=== PATIENT | female | born 1945 | race Caucasian/White ===

== ENCOUNTER 2016-09-06 16:08 | Inpatient (IN) | payer MEDICARE, OTHER ==
[2016-09-06 16:13] VITALS: BMI 24.0
[2016-09-06] MEDS ORDERED: Sodium Chloride 0.9% 500 ML IV STA (16:23)
[2016-09-06 16:42] LABS: BASO % 0.5 % (0.0-2.0); EOS # 0.1 K/uL (0.0-0.7); EOS % 1.1 % (0.0-4.0); HEMATOCRIT 31.2 % (34.0-47.0); LYMPH # 3.1 K/uL (1.0-4.3); LYMPH % 42.7 % (20.0-40.0); MEAN CELL VOLUME 76.9 fL (81.0-99.0); MEAN CORPUSCULAR HGB CONC 32.6 g/dL (33.0-37.0); MEAN PLATELET VOLUME 8.9 fL (7.2-11.7); MONO # 0.5 K/uL (0.0-0.8); MONO % 6.5 % (0.0-10.0); RED CELL DISTRIBUTION WIDTH 17.4 % (11.5-14.5); WHITE BLOOD COUNT 7.2 K/uL (4.8-10.8)
[2016-09-06 16:51] LABS: POTASSIUM 4.4 mmol/L (3.6-5.2)
[2016-09-06 16:54] LABS: ALB/GLOB RATIO 1.3 (1.0-2.1); BILIRUBIN,TOTAL 0.2 mg/dL (0.2-1.3); CALCIUM 8.7 mg/dl (8.6-10.4); TOTAL PROTEIN 7.5 g/dL (6.3-8.3)
--- NOTE | 2016-09-06 17:02 | C.PDOC ---
History Of Present Illness 71 y/o female, whose past medical history includes diabetes, is sent to the emergency department by PMD for renal failure. Patient reports she was seeing her doctor for routine blood work after complaining that she had been feeling weak, unwell, and had a recent weight loss of 10 lbs. She also notes some flank pain. Patient denies any fever, chest pain, shortness of breath, abdominal pain , vomiting, or other complaints. Time Seen by Provider: 09/06/16 16:22 Chief Complaint (Nursing): Female Genitourinary History Per: Patient History/Exam Limitations: no limitations Onset/Duration Of Symptoms: Days, Persistent Current Symptoms Are (Timing): Still Present Reports Recently: Treated By A Physician Recent travel outside of the [place]: No Past Medical History Reviewed: Historical Data, Nursing Documentation, Vital Signs Vital Signs: Last Vital Signs Temp 97.5 F L 09/06/16 18:18 Pulse 82 09/06/16 18:18 Resp 20 09/06/16 18:18 BP 132/76 09/06/16 18:18 Pulse Ox 100 09/06/16 18:18 - Medical History PMH: Anxiety, Depression, Diabetes, HTN Surgical History: Cholecystectomy - [facility] COLONOSCOPY (09/28/13) Family History: States: No Known Family Hx - Social History Hx Tobacco Use: No Hx Alcohol Use: No Hx Substance Use: No - Immunization History Hx Tetanus Toxoid Vaccination: No Hx Influenza Vaccination: No (''Unknown'') Hx Pneumococcal Vaccination: No Review Of Systems Except As Marked, All Systems Reviewed And Found Negative. Constitutional: Positive for: Weakness, Weight loss, Other ("not feeling well") . Negative for: Fever Cardiovascular: Negative for: Chest Pain Respiratory: Negative for: Shortness of Breath Gastrointestinal: Negative for: Vomiting Musculoskeletal: Positive for: Other (flank pain) Physical Exam - Physical Exam Appears: Non-toxic, No Acute Distress Skin: Warm, Dry, Pale Head: Atraumatic, Normacephalic Eye(s): bilateral: Normal Inspection, PERRL Oral Mucosa: Moist Neck: Normal, Normal ROM Chest: Symmetrical Cardiovascular: Rhythm Regular Respiratory: Normal Breath Sounds, No Rales, No Rhonchi, No Wheezing Gastrointestinal/Abdominal: Normal Exam, Soft, No Tenderness Back: Normal Inspection, No CVA Tenderness Extremity: Normal ROM, No Tenderness, No Swelling Neurological/Psych: Oriented x3, Normal Speech, Normal Cognition ED Course And Treatment - Laboratory Results Result Diagrams: 09/06/16 16:38 09/06/16 16:38 O2 Sat by Pulse Oximetry: 100 (ra) Pulse Ox Interpretation: Normal - Other Rad Chest X-Ray X-Ray: Viewed By Me, Read By Radiologist Interpretation: Accession No. : [id number]. Patient Name / ID : TRESSA TERRY / [id number]. Exam Date : 09/06/2016 16:40:58 ( Approved ). Study Comment : Sex / Age : F / 71Y. Creator : ERICA FRANK MD. Dictator : ERICA FRANK MD. [employer] : Nitro Man : ERICA FRANK MD. Approver2 : Report Date : 09/06/2016 17:29:39. My Comment : . PROCEDURE: CHEST RADIOGRAPH, 1 VIEW. HISTORY: abnormal renal function. COMPARISON: 05/04/2016. FINDINGS : LUNGS: The lungs are well inflated and clear. PLEURA: No pneumothorax or pleural fluid seen. CARDIOVASCULAR: Normal. OSSEOUS STRUCTURES: No significant abnormalities. VISUALIZED UPPER ABDOMEN: Normal. OTHER FINDINGS: None. IMPRESSION: No active pulmonary disease. - CT Scan/US CT Abd/Pelvis Other Rad Studies (CT/US): Read By Radiologist, Radiology Report Reviewed CT/US Interpretation: Accession No. : [id number]. Patient Name / ID : TRESSA TERRY / [id number]. Exam Date : 09/06/2016 17:08:18 ( Approved ). Study Comment : Sex / Age : F / 71Y. Creator : Ross Crain MD. Dictator : Ross Crain MD. [employer] : Nitro Man : Ross Crain MD. Approver2 : Report Date : 09/06/2016 17:37:24. My Comment : . PROCEDURE: CT Abdomen and Pelvis without intravenous contrast. HISTORY: flank pain. COMPARISON: None. TECHNIQUE: Without contrast.. Contrast Dose: Radiation dose: Total exam DLP = 420 mGy-cm. FINDINGS: LOWER THORAX: Unremarkable. LIVER: Unremarkable. No gross lesion or ductal dilatation. GALLBLADDER AND BILE DUCTS: Unremarkable. PANCREAS: Unremarkable. No gross lesion or ductal dilatation. SPLEEN: Unremarkable. ADRENALS: Unremarkable. No mass. KIDNEYS AND URETERS: Unremarkable. No hydronephrosis. No solid mass. There are 2 small 3 mm nonobstructing stones in the left kidney. VASCULATURE: Unremarkable. No aortic aneurysm. BOWEL: Unremarkable. No obstruction. No gross mural thickening. There is moderate constipation. APPENDIX: Unremarkable. Normal appendix. PERITONEUM: Unremarkable. No free fluid. No free air. LYMPH NODES: Unremarkable. No enlarged lymph nodes. BLADDER: Unremarkable. REPRODUCTIVE: Unremarkable. BONES: No acute fracture. OTHER FINDINGS: None. IMPRESSION: No acute intra-abdominal findings Progress Note: EKG, CXR, CT Abd/Pelvis, Bladder Scan, Blood Work, Urinalysis, and Urine Culture were ordered. Patient treated with IV Fluids. Bedside Bladder scan shows 200 ml of urine. Patient accepted for admission under the care of Dr. Sophie Ivory. Disposition - Disposition Disposition: HOSPITALIZED Disposition Time: 17:18 Condition: FAIR - Clinical Impression Clinical Impression: Acute renal failure - PA / DIE CUTTER OPERATOR / Resident Statement MD/DO has reviewed & agrees with the documentation as recorded. - Scribe Statement The provider has reviewed the documentation as recorded by the Scribe (Genny Negron) All medical record entries made by the Scribe were at my direction and personally dictated by me. I have reviewed the chart and agree that the record accurately reflects my personal performance of the history, physical exam, medical decision making, and the department course for this patient. I have also personally directed, reviewed, and agree with the discharge instructions and disposition. Decision To Admit - Pt Status Changed To: Hospital Disposition Of: Inpatient - Admit Certification Admit to Inpatient:: After my assessment, the patient will require hospitalization for at least two midnights. This is because of the severity of symptoms shown, intensity of services needed, and/or the medical risk in this patient being treated as an outpatient. - InPatient: Physician Admission Certification: I certify that this patient requires 2 or more midnights of care for the following reason:: New oncet of ARF will need a full work up that will take more than 2 days of hospitalization. - . Bed Request Type: Regular Admitting Physician: Sophie Ivory Patient Diagnosis: Acute renal failure
[2016-09-06 17:17] LABS: RBC URINE 1 /hpf (0-3); URINE BACTERIA FEW (<OCC); URINE BILIRUBIN NEGATIVE (NEGATIVE); URINE BLOOD NEGATIVE (NEGATIVE); URINE COLOR Yellow (YELLOW); URINE GLUCOSE (UA) 2+ mg/dL (Normal); URINE KETONE NEGATIVE (NEGATIVE); URINE PROTEIN NEGATIVE (NEGATIVE); URINE UROBILINOGEN NORMAL mg/dL (0.2-1.0); WBC URINE 9 /hpf (0-5)
[2016-09-06] MEDS ORDERED: Sodium Chloride 0.9% 500 ML IV ONE (17:23)
[2016-09-06 17:24] LABS: URINE LEUKOCYTE ESTERASE 1+ Leu/uL (Negative)
--- NOTE | 2016-09-06 17:31 | RAD ---
PROCEDURE: CHEST RADIOGRAPH, 1 VIEW HISTORY: abnormal renal function COMPARISON: 05/04/2016 FINDINGS: LUNGS: The lungs are well inflated and clear. PLEURA: No pneumothorax or pleural fluid seen. CARDIOVASCULAR: Normal. OSSEOUS STRUCTURES: No significant abnormalities. VISUALIZED UPPER ABDOMEN: Normal. OTHER FINDINGS: None. IMPRESSION: No active pulmonary disease.
--- NOTE | 2016-09-06 17:39 | CT ---
PROCEDURE: CT Abdomen and Pelvis without intravenous contrast HISTORY: flank pain COMPARISON: None. TECHNIQUE: Without contrast.. Contrast Dose: Radiation dose: Total exam DLP = 420 mGy-cm. FINDINGS: LOWER THORAX: Unremarkable. LIVER: Unremarkable. No gross lesion or ductal dilatation. GALLBLADDER AND BILE DUCTS: Unremarkable. PANCREAS: Unremarkable. No gross lesion or ductal dilatation. SPLEEN: Unremarkable. ADRENALS: Unremarkable. No mass. KIDNEYS AND URETERS: Unremarkable. No hydronephrosis. No solid mass. There are 2 small 3 mm nonobstructing stones in the left kidney VASCULATURE: Unremarkable. No aortic aneurysm. BOWEL: Unremarkable. No obstruction. No gross mural thickening. There is moderate constipation APPENDIX: Unremarkable. Normal appendix. PERITONEUM: Unremarkable. No free fluid. No free air. LYMPH NODES: Unremarkable. No enlarged lymph nodes. BLADDER: Unremarkable. REPRODUCTIVE: Unremarkable. BONES: No acute fracture. OTHER FINDINGS: None. IMPRESSION: No acute intra-abdominal findings
[2016-09-06 18:18] VITALS: RESP 20
[2016-09-06] MEDS: Sodium Chloride 0.9% 1,000 ML IV SCH (20:24)
--- NOTE | 2016-09-06 23:19 | CP.PCM.CON ---
History of Present Illness - History of Present Illness History of Present Illness: Patient with pmh of htn, DM, depression, sent by brim stitcher due to lab findings indicative of renal failure; Patient reports that over past 2 weeks she has been feeling very ill with nausea , poor appetite, lethargy and a sweet taste in her mouth; she reports a few episodes of vomiting; however, she says that since yesterday her symptoms have improved; she denies any shortness of breath, any muscle cramps or change in urinary habits; she reports compliance with all her meds which she has continued taking up until this week; she denies any change in her medications lately; denies taking any regular pain meds (occasionally takes an advil occasionally for headaches). Patient also reporting having flu-like symptoms last month that lasted for 3 weeks and included fevers for a few days; at that time she went to her PMD and received some injection. Past Patient History - Infectious Disease Hx of Infectious Diseases: None - Past Medical History & Family History Past Medical History?: Yes - Past Social History Smoking Status: Former Smoker - CARDIAC Hx Cardiac Disorders: Yes Hx Hypertension: Yes - PULMONARY Hx Respiratory Disorders: No - NEUROLOGICAL Hx Neurological Disorder: No - HEENT Hx HEENT Problems: No - RENAL Hx Chronic Kidney Disease: No Other/Comment: ACUTE RENAL FAILURE - ENDOCRINE/METABOLIC Hx Endocrine Disorders: Yes Hx Diabetes Mellitus Type 1: Yes - HEMATOLOGICAL/ONCOLOGICAL Hx Blood Disorders: No - INTEGUMENTARY Hx Dermatological Problems: No - MUSCULOSKELETAL/RHEUMATOLOGICAL Hx Musculoskeletal Disorders: No Hx Falls: No - GASTROINTESTINAL Hx Gastrointestinal Disorders: No - GENITOURINARY/GYNECOLOGICAL Hx Genitourinary Disorders: No - PSYCHIATRIC Hx Psychophysiologic Disorder: No Hx Substance Use: No - SURGICAL HISTORY Hx Surgeries: Yes Hx Cholecystectomy: Yes - ANESTHESIA Hx Anesthesia: Yes Hx Anesthesia Reactions: No Hx Malignant Hyperthermia: No Has any member of the family had a problem w/ anesthesia?: No Meds Allergies/Adverse Reactions: Allergies Allergy/AdvReac Type Severity Reaction Status Date / Time No Known Allergies Allergy Verified 09/06/16 16:12 - Medications Medications: Current Medications Famotidine (Pepcid) 40 mg PO DAILY [facility] Glimepiride (Amaryl) 2 mg PO DAILY [facility] Sodium Chloride (Sodium Chloride 0.9%) 1,000 mls @ 100 mls/hr IV .Q10H [facility] Last Admin: 09/06/16 20:24 Dose: 100 mls/hr Ceftriaxone Sodium 1 gm/ (Sodium Chloride) 100 mls @ 100 mls/hr IVPB DAILY [facility] Influenza Virus Vaccine (Afluria) 45 mcg IM .ONCE ONE Stop: 09/07/16 10:01 Insulin Human Isoph/Insulin Regular (Novolin 70/30 (70/30 Units/Ml) 10 Ml) 20 units SC BID [facility] Metoprolol Succinate (Toprol Xl) 100 mg PO DAILY [facility] Pneumococcal Polyvalent Vaccine (Pneumovax 23 Vaccine) 0.5 ml IM .ONCE ONE Stop: 09/08/16 10:01 Sitagliptin Phosphate (Januvia) 25 mg PO DAILY [facility] Results - Vital Signs Recent Vital Signs: Last Vital Signs Temp 97.2 F L 09/06/16 18:57 Pulse 85 09/06/16 18:57 Resp 20 09/06/16 18:57 BP 157/64 H 09/06/16 18:57 Pulse Ox 100 09/06/16 18:57 - Labs Result Diagrams: 09/06/16 16:38 09/06/16 16:38 Labs: Laboratory Results - last 24 hr 09/06/16 21:23 POC Glucose (mg/dL) 196 H Assessment & Plan (1) Acute renal failure Assessment and Plan: Appears to be resolving from outpatient labs done on 09/03 showing serum creat 4.7, now down to 3.8; non-oliguric renal failure; no hematuria or albuminuria by dipstick to suggest a glomerular process; Status: Acute (2) HTN (hypertension) Status: Acute (3) Diabetes Status: Acute (4) Anemia Status: Acute (5) Volume depletion Status: Acute
[2016-09-06 23:55] LABS: CREATININE, RANDOM URINE 116.9 mg/dL
[2016-09-07] MEDS: Sodium Chloride 0.9% 1,000 ML IV SCH ×2 (04:45→08:25)
[2016-09-07 07:15] LABS: HEMATOCRIT 34.5 % (34.0-47.0); MEAN CELL VOLUME 77.3 fL (81.0-99.0); MEAN CORPUSCULAR HEMOGLOBIN 24.8 pg (27.0-31.0); MEAN PLATELET VOLUME 8.9 fL (7.2-11.7); RED CELL DISTRIBUTION WIDTH 17.5 % (11.5-14.5); WHITE BLOOD COUNT 7.2 K/uL (4.8-10.8)
[2016-09-07 07:33] LABS: RBC URINE < 1 /hpf (0-3); URINE BACTERIA FEW (<OCC); URINE BILIRUBIN NEGATIVE (NEGATIVE); URINE BLOOD NEGATIVE (NEGATIVE); URINE COLOR Straw (YELLOW); URINE GLUCOSE (UA) 1+ mg/dL (Normal); URINE KETONE NEGATIVE (NEGATIVE); URINE LEUKOCYTE ESTERASE 2+ Leu/uL (Negative); URINE PROTEIN NEGATIVE (NEGATIVE); URINE UROBILINOGEN NORMAL mg/dL (0.2-1.0); WBC URINE 13 /hpf (0-5)
[2016-09-07 07:34] LABS: POTASSIUM 3.7 mmol/L (3.6-5.2)
[2016-09-07 07:35] LABS: IRON 123 ug/dL (37-170)
[2016-09-07 07:36] LABS: ALB/GLOB RATIO 1.3 (1.0-2.1); BILIRUBIN,TOTAL 0.6 mg/dL (0.2-1.3); CALCIUM 8.5 mg/dl (8.6-10.4); TOTAL PROTEIN 7.9 g/dL (6.3-8.3)
[2016-09-07 07:58] LABS: THYROID STIMULATING HORMONE 2.59 mIU/L (0.46-4.68)
[2016-09-07 08:33] LABS: FOLATE 8.4 ng/mL
[2016-09-07] MEDS ORDERED: Influenza Virus Vaccine 45 mcg/0.5 ml Syr IM ONE (10:00)
[2016-09-07] MEDS: (Novolin 70/30) NPH/Regular 70/30 Units/ml 10 ml vial SC SCH ×2 (10:50→17:14)
[2016-09-07] MEDS: Metoprolol Succinate 100 mg XL Tab PO SCH (10:51)
[2016-09-07] MEDS: (Novolin R) Insulin Human Regular 100 units/ml vial SC SCH ×3 (12:22→22:12)
--- NOTE | 2016-09-07 17:44 | CP.PCM.PN ---
Subjective - Date & Time of Evaluation Date of Evaluation: 09/07/16 Time of Evaluation: 15:30 - Subjective Subjective: Patient feeling better, tolerating diet without nausea; urine output markedly increased since being admitted; Objective - Vital Signs/Intake and Output Vital Signs (last 24 hours): Temp Pulse Resp BP Pulse Ox 97.8 F 69 20 146/79 99 09/07/16 15:05 09/07/16 15:05 09/07/16 15:05 09/07/16 15:05 09/07/16 15:05 Intake and Output: 09/07/16 09/07/16 06:59 18:59 Intake Total 300 2290 Balance 300 2290 - Medications Medications: Current Medications Famotidine (Pepcid) 40 mg PO DAILY [facility] Last Admin: 09/07/16 10:57 Dose: 40 mg Glimepiride (Amaryl) 2 mg PO DAILY [facility] Last Admin: 09/07/16 10:51 Dose: 2 mg Heparin Sodium (Porcine) (Heparin) 5,000 units SC Q12 [facility] Last Admin: 09/07/16 10:51 Dose: 5,000 units Ceftriaxone Sodium 1 gm/ (Sodium Chloride) 100 mls @ 100 mls/hr IVPB DAILY [facility] Last Admin: 09/07/16 10:51 Dose: 100 mls/hr Sodium Chloride (Sodium Chloride 0.45%) 1,000 mls @ 120 mls/hr IV .Q8H20M [facility] Influenza Virus Vaccine (Afluria) 45 mcg IM .ONCE ONE Stop: 09/08/16 10:01 Insulin Human Isoph/Insulin Regular (Novolin 70/30 (70/30 Units/Ml) 10 Ml) 20 units SC BID [facility] Last Admin: 09/07/16 17:14 Dose: Not Given Insulin Human Regular (Novolin R) 0 unit SC ACHS [facility] PRN Reason: Protocol Last Admin: 09/07/16 17:14 Dose: Not Given Metoprolol Succinate (Toprol Xl) 100 mg PO DAILY [facility] Last Admin: 09/07/16 10:51 Dose: 100 mg Pneumococcal Polyvalent Vaccine (Pneumovax 23 Vaccine) 0.5 ml IM .ONCE ONE Stop: 09/08/16 10:01 Sitagliptin Phosphate (Januvia) 25 mg PO DAILY [facility] - Labs Labs: 09/07/16 07:01 09/07/16 07:01 - Constitutional Appears: Well, No Acute Distress - Head Exam Head Exam: NORMAL INSPECTION - Eye Exam Eye Exam: Normal appearance. absent: Scleral icterus - ENT Exam ENT Exam: Mucous Membranes Moist - Neck Exam Neck Exam: Normal Inspection - Respiratory Exam Respiratory Exam: Clear to Ausculation Bilateral, NORMAL BREATHING PATTERN - Cardiovascular Exam Cardiovascular Exam: REGULAR RHYTHM, +S1, +S2. absent: JVD - GI/Abdominal Exam GI & Abdominal Exam: Soft. absent: Distended, Tenderness - Extremities Exam Extremities Exam: Normal Capillary Refill Additional comments: No significant leg edema; - Neurological Exam Neurological Exam: Alert, Awake - Skin Skin Exam: Warm. absent: Cyanosis Assessment and Plan (1) Acute renal failure Assessment & Plan: Non-oliguric renal failure, resolving; appears to having post-ATN diuresis which is consistent with new onset of hypernatremia; etiology is either ATN due to recent possible sepsis syndrome (last month), or AIN; Urine sediment not entirely useful as disease process is resolving; nevertheless , showing some renal tubular epithelial cells indicative of tubular injury; also significant number of WBC's without bacteria, as well as 1-2 mixed cellular casts seen, which points more toward AIN; Difficult to get focused history from patient but she reports 2 oral hypoglycemic agents, januvia and glimeperide, being started within the past month (although bottle says glimeperide prescription from April 2016) and which she subsequently discontinued per doctor's recommendation (with last use being 4 days before admission); januvia has been associated AIN; -d/c januvia -IVF changed to 1/2NS at 120 cc/hr -continue to hold JUAN C inhibitor until renal function stabilizes Status: Acute (2) HTN (hypertension) Assessment & Plan: Controlled, continue metoprolol XL; hold JUAN C inhibitor and diuretic; Status: Acute (3) Diabetes Assessment & Plan: A1C 7.7, improved from 9.4 in 03/2016 per outside records; has microalbuminuria as well; should restart JUAN C inhibitor when renal function stable; Status: Acute (4) Anemia Assessment & Plan: Secondary to acute illness; iron replete; monitor; Status: Acute (5) Volume depletion Assessment & Plan: Indicated by high FENa 0.6% on labs last night; monitor UO and replenish accordingly; Status: Acute
[2016-09-07] MEDS: Sodium Chloride 0.45% 1,000 ML IV SCH (21:54)
[2016-09-08] MEDS: Sodium Chloride 0.45% 1,000 ML IV SCH ×4 (00:05→18:28)
[2016-09-08 05:18] LABS: CREATININE, RANDOM URINE 63 mg/dL (20-320)
--- NOTE | 2016-09-08 06:31 | CARD ---
APPROVED REPORT EKG Measurement Heart [id number] <Conclusion> Normal sinus rhythm Normal ECG
[2016-09-08 07:34] LABS: POTASSIUM 3.6 mmol/L (3.6-5.2)
[2016-09-08 07:38] LABS: CALCIUM 7.6 mg/dl (8.6-10.4)
[2016-09-08] MEDS: (Novolin R) Insulin Human Regular 100 units/ml vial SC SCH ×4 (08:30→21:40)
[2016-09-08] MEDS ORDERED: Influenza Virus Vaccine 45 mcg/0.5 ml Syr IM ONE (10:00)
[2016-09-08] MEDS ORDERED: Pneumococcal 23-Valent Vaccine IM ONE (10:00)
[2016-09-08] MEDS: Metoprolol Succinate 100 mg XL Tab PO SCH (10:56)
[2016-09-08] MEDS: (Novolin 70/30) NPH/Regular 70/30 Units/ml 10 ml vial SC SCH ×2 (10:57→18:00)
--- NOTE | 2016-09-08 19:56 | PN ---
DATE: 09/08/2016 The patient is a 71-year-old female. The patient seen and examined on the bedside, looks comfortable, feeling better. No nausea, vomiting, diarrhea. No hematuria, no hematochezia. No swelling of the legs. No chest pain, no palpitation, no headache, no dizziness. PHYSICAL EXAMINATION: VITAL SIGNS: Temperature 97.3, pulse 65, blood pressure 120/71, respiratory rate 20. HEENT: Head normocephalic, atraumatic. Eyes: PERRLA. Extraocular muscles intact. Conjunctivae pink. Eyelids unremarkable. Nose patent. Mucous membranes moist. NECK: Supple. No carotid bruit, no JVD, no thyromegaly. CHEST: Bilaterally symmetrical. HEART: S1 and S2 positive. LUNGS: Clear to auscultation. ABDOMEN: Soft. Bowel sounds positive. No organomegaly. EXTREMITIES: No edema, no cyanosis. NEUROLOGIC: The patient is awake, alert, moving all 4 extremities. No focal deficits. MEDICATIONS: Amaryl, ceftriaxone, heparin, insulin, Pepcid, NS, Toprol. LABORATORIES: White blood cells 7.2, hemoglobin 11.0, hematocrit 34.5, platelets 245. Sodium 142, potassium 3.6, BUN 36, creatinine 2.0, glucose 99, calcium 7.6. ASSESSMENT AND PLAN: The patient is a 71-year-old lady with a history of anemia , got better, history of renal insufficiency, acute on chronic. She came with BUN 60, creatinine 2.8. Today, BUN 37, creatinine 2.0. Hyperglycemia. Discussion done with youth services specialist. Discussion done with business systems consultant. Kidney function is improving. Glucosuria. Dr. Tariq Briggs is the business systems consultant. Discussion done with him. Hypertension, controlled. Continue metoprolol , because of kidney problem. Diabetes. Hemoglobin A1c 7.7, improvement from 9.4 on 03/29/2016 as per outside records, has microalbuminuria as well. Should restart JUAN C inhibitors when her renal function is stable. Anemia, secondary to acute illness. Iron replacement, monitoring. Volume depletion. The patient is improving with IV fluid. Length of time discussion done with patient, patient's nurses. Doing better. We will follow up. Sophie Ivory MD cc: [id number] TT: 09/08/2016 19:55:27 Confirmation # [id number] Dictation # [id number] en MTDD
--- NOTE | 2016-09-08 23:17 | CP.PCM.PN ---
Subjective - Date & Time of Evaluation Date of Evaluation: 09/08/16 Time of Evaluation: 16:30 - Subjective Subjective: Patient feeling well, tolerating diet; no nausea/vomiting or shortness of breath ; reporting increased urination; Objective - Vital Signs/Intake and Output Vital Signs (last 24 hours): Temp Pulse Resp BP Pulse Ox 97.3 F L 65 20 146/71 99 09/08/16 15:00 09/08/16 15:00 09/08/16 15:00 09/08/16 15:00 09/08/16 15:00 - Medications Medications: Current Medications Acetaminophen (Tylenol 325mg Tab) 650 mg PO BID PRN PRN Reason: pain Last Admin: 09/08/16 22:59 Dose: 650 mg Famotidine (Pepcid) 40 mg PO DAILY [facility] Last Admin: 09/08/16 10:58 Dose: 40 mg Glimepiride (Amaryl) 2 mg PO DAILY [facility] Last Admin: 09/08/16 10:56 Dose: 2 mg Heparin Sodium (Porcine) (Heparin) 5,000 units SC Q12 [facility] Last Admin: 09/08/16 21:39 Dose: 5,000 units Ceftriaxone Sodium 1 gm/ (Sodium Chloride) 100 mls @ 100 mls/hr IVPB DAILY [facility] Last Admin: 09/08/16 10:58 Dose: 100 mls/hr Sodium Chloride (Sodium Chloride 0.45%) 1,000 mls @ 100 mls/hr IV .Q10H [facility] Insulin Human Isoph/Insulin Regular (Novolin 70/30 (70/30 Units/Ml) 10 Ml) 20 units SC BID [facility] Last Admin: 09/08/16 18:00 Dose: Not Given Insulin Human Regular (Novolin R) 0 unit SC ACHS [facility] PRN Reason: Protocol Last Admin: 09/08/16 21:40 Dose: Not Given Metoprolol Succinate (Toprol Xl) 100 mg PO DAILY [facility] Last Admin: 09/08/16 10:56 Dose: 100 mg - Labs Labs: 09/07/16 07:01 09/08/16 07:13 - Constitutional Appears: Well, No Acute Distress - Head Exam Head Exam: NORMAL INSPECTION - Eye Exam Eye Exam: Normal appearance. absent: Scleral icterus - ENT Exam ENT Exam: Mucous Membranes Moist - Neck Exam Neck Exam: Normal Inspection - Respiratory Exam Respiratory Exam: Clear to Ausculation Bilateral, NORMAL BREATHING PATTERN. absent: Rales, Rhonchi, Wheezes - Cardiovascular Exam Cardiovascular Exam: REGULAR RHYTHM, +S1, +S2. absent: JVD - GI/Abdominal Exam GI & Abdominal Exam: Soft. absent: Distended, Tenderness - Extremities Exam Additional comments: No leg edema; - Neurological Exam Neurological Exam: Alert, Awake - Psychiatric Exam Psychiatric exam: Normal Affect, Normal Mood - Skin Skin Exam: Warm. absent: Cyanosis Assessment and Plan (1) Acute renal failure Assessment & Plan: Already resolving by time of presentation; unclear etiology, either ATN in setting of acute illness or AIN, possibly from Sitagliptin, discontinued since 5 days; currently euvolemic on exam with stable electrolyte status; UA negative for albuminuria but with >2 g proteinuria by spot prot/creat; -continue 1/2NS at 120 cc/hr -will repeat proteinuria testing once serum creat stable (as outpatient) Status: Acute (2) HTN (hypertension) Assessment & Plan: controlled on metoprolol XL; holding enalapril for now, can restart as outpatient once creat stabilizes; Status: Acute (3) Diabetes Assessment & Plan: A1C mildly elevated for elderly patient at 7.7; can continue amaryl and resume metformin once creatinine < 1.5; Status: Acute (4) Anemia Status: Acute
[2016-09-09] MEDS: Sodium Chloride 0.45% 1,000 ML IV SCH ×3 (01:00→10:34)
[2016-09-09 07:13] LABS: HEMATOCRIT 28.6 % (34.0-47.0); MEAN CELL VOLUME 75.9 fL (81.0-99.0); MEAN CORPUSCULAR HGB CONC 32.9 g/dL (33.0-37.0); MEAN PLATELET VOLUME 8.9 fL (7.2-11.7); RED CELL DISTRIBUTION WIDTH 17.7 % (11.5-14.5); WHITE BLOOD COUNT 6.1 K/uL (4.8-10.8)
[2016-09-09 07:25] LABS: BILIRUBIN,TOTAL 0.2 mg/dL (0.2-1.3); CALCIUM 7.5 mg/dl (8.6-10.4); TOTAL PROTEIN 6.2 g/dL (6.3-8.3)
[2016-09-09] MEDS: (Novolin R) Insulin Human Regular 100 units/ml vial SC SCH ×4 (07:30→21:43)
[2016-09-09 07:38] LABS: ALB/GLOB RATIO 1.1 (1.0-2.1)
[2016-09-09] MEDS: (Novolin 70/30) NPH/Regular 70/30 Units/ml 10 ml vial SC SCH ×2 (10:19→17:51)
[2016-09-09] MEDS: Potassium Chloride 20 mEq ER Tab PO SCH ×2 (10:28→11:30)
[2016-09-09] MEDS: Metoprolol Succinate 100 mg XL Tab PO SCH (10:30)
[2016-09-09] MEDS ORDERED: Sodium Chloride 0.45% 1,000 ML IV SCH (13:10)
[2016-09-10 01:58] VITALS: O2SAT 98
[2016-09-10 07:58] LABS: HEMATOCRIT 30.5 % (34.0-47.0); MEAN CELL VOLUME 76.9 fL (81.0-99.0); MEAN CORPUSCULAR HEMOGLOBIN 24.9 pg (27.0-31.0); MEAN CORPUSCULAR HGB CONC 32.4 g/dL (33.0-37.0); RED CELL DISTRIBUTION WIDTH 17.5 % (11.5-14.5); WHITE BLOOD COUNT 6.2 K/uL (4.8-10.8)
--- NOTE | 2016-09-10 08:25 | PN ---
DATE: 09/09/2016 SUBJECTIVE: The patient seen and examined on the bedside, looks comfortable. Feeling better. Appetite is getting better. No nausea, vomiting. No fever, no chills. no hematochezia. No swelling of the leg. no chest pain, or palpitation . PHYSICAL EXAMINATION: VITAL SIGNS: pulse 62, blood pressure 122/69, respiratory rate 20. HEENT: Head normocephalic, atraumatic. Eyes PERRLA. Extraocular muscles intact. Conjunctivae pink. Eyelids unremarkable. Nose patent. NECK: Supple. No carotid bruit, JVD or thyromegaly. CHEST: Bilaterally symmetrical. HEART: S1, S2 positive. LUNGS: Clear to auscultation. ABDOMEN: Soft. Bowel sounds positive. No organomegaly. EXTREMITIES: No edema, no cyanosis. NEUROLOGIC: The patient is awake, alert, moving all 4 extremities. No focal deficit. MEDICATIONS: Amaryl, ceftriaxone, heparin, insulin, Pepcid, Toprol. LABORATORY DATA: White blood cells 6.1, hemoglobin 9.4, hematocrit 28.6, platelets 177. Sodium 140, potassium 3.0, BUN noted creatinine 1.6. Glucose 178. Calcium 7.5. ASSESSMENT AND PLAN: The patient is a 71-year-old female with anemia, hypokalemia, replaced; renal insufficiency, improving; hyperglycemia, hypocalcemia, will replace; hyperalbuminemia, history of urinary tract infection. Getting antibiotics. 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 Has acute renal failure on chronic, all resolving. Underlying etiology either cute tubular necrosis in the setting of acute illness or urinary tract infection, Discontinued since 5 days. Currently getting better. Hypertension, improving. The patient is on metoprolol. Holding enalapril now. Hemoglobin A1c 7.7, uncontrolled diabetes mellitus. Gastrointestinal and deep venous thrombosis prophylaxis. Repeat labs. Decrease intravenous fluids. Discussion done with patient and nursing staff. Sophie Ivory MD cc: [id number] TT: 09/09/2016 20:34:43 Confirmation # [id number] Dictation # [id number] [facility]
[2016-09-10 08:27] LABS: POTASSIUM 3.5 mmol/L (3.6-5.2)
[2016-09-10 08:30] LABS: CALCIUM 7.5 mg/dl (8.6-10.4)
[2016-09-10] MEDS: (Novolin R) Insulin Human Regular 100 units/ml vial SC SCH ×2 (08:47→12:37)
[2016-09-10] MEDS: (Novolin 70/30) NPH/Regular 70/30 Units/ml 10 ml vial SC SCH (09:25)
[2016-09-10] MEDS: Metoprolol Succinate 100 mg XL Tab PO SCH (09:26)
--- NOTE | 2016-09-10 09:45 | HP ---
CHIEF COMPLAINT: Feeling fatigued, weak, recent weight loss of 10 pounds. HISTORY OF PRESENT ILLNESS: The patient is a 71-year-old lady with history of diabetes mellitus sent to Emergency Room by her primary care physician for further evaluation for renal failure. The patient reports that she was seen by Dr. mcarthur after complaining that she had been feeling weak, tired, unwell and had recent loss of weight and pounds. She also noted some flank pain. The patient denies any fever or chills. No nausea, vomiting, or diarrhea. No hematuria or hematochezia. , no dizziness. This feeling for days and still present. The patient was seen in her room complaining about fatigue PAST MEDICAL HISTORY: Anxiety, depression, diabetes mellitus, hypertension, and cholecystectomy. SOCIAL HISTORY: No smoking, no drugs, no ethanol. FAMILY HISTORY: Father and mother noncontributory. REVIEW OF SYSTEMS: The patient seen and examined on the bedside. Speaks Bermudian. Interviewed with a environmental field professional. Complaining about fatigue . Otherwise, same feelings of feeling fatigue and tired, losing weight; but no fever, no chills, no nausea, vomiting or diarrhea, no hematuria or hematochezia. No swelling of the legs. No chest pain. PHYSICAL EXAMINATION: VITAL SIGNS: Temperature 97.5, pulse 80 , respiratory rate 20, blood pressure 132/76. HEENT: Head normocephalic, atraumatic. Eyes: PERRLA. Extraocular muscles intact. Conjunctivae are clear. Eyelids unremarkable. Nose patent. Mucous membranes moist. NECK: Supple. No carotid bruit, no JVD, no thyromegaly. CHEST: Bilaterally symmetrical. HEART: S1, S2 positive. LUNGS: Clear to auscultation. ABDOMEN: Soft. Bowel sounds positive. No organomegaly. EXTREMITIES: No edema, no cyanosis. NEUROLOGIC: The patient is awake, alert, moving all 4 extremities. No focal deficits. LABORATORY DATA: White blood cells 7.3, hemoglobin 10.2, hematocrit 31.2, and platelets 244. Sodium 135, potassium 4.4, BUN 72, creatinine 3.8, glucose 318. ASSESSMENT AND PLAN: The patient is a 71-year-old lady with renal insufficiency , acute on chronic; hyperglycemia, history of diabetes mellitus, hypertension, anxiety. Nephrology consult called with Dr. Tariq Briggs. CAT scan of abdomen and pelvis done, reviewed by me. Chest x-ray done, reviewed by me. According to nut dehydrator operator, acute renal failure looks like a resolving as compared to outpatient labs of 09/03/2016 that show creatinine was 4.7. Now it is trending down to 3.8. No oliguric renal failure. No hematuria or albuminuria by dipstick suggestive for glomerular process. Hypertension, and getting medicines for that. Volume depletion. The patient is given flu vaccination and started on heparin for deep venous thrombosis prophylaxis. Januvia is given , adjusted according to renal insufficiency. Getting insulin. Pepcid given for gastrointestinal prophylaxis. Rule out urinary tract infection, antibiotics started, Rocephin. Getting IV fluid. Got glimepiride also. Getting metoprolol for hypertension. Working on patient's renal failure. Appreciated Dr. Briggs's input. Will follow up. Sophie Ivory MD cc: [id number] TT: 09/07/2016 11:18:53 suellen OLIVERA
[2016-09-10] MEDS ORDERED: Potassium Chloride 20 mEq ER Tab PO ONE (10:00)
[2016-09-10 10:07] VITALS: BP 139/75; PULSE 70; TEMP 97.9
--- NOTE | 2016-09-10 17:10 | CP.PCM.PN ---
Subjective - Date & Time of Evaluation Date of Evaluation: 09/10/16 Time of Evaluation: 11:00 - Subjective Subjective: Awake, alert, NAD. Objective - Vital Signs/Intake and Output Vital Signs (last 24 hours): Temp Pulse Resp BP Pulse Ox 97.9 F 70 20 139/75 98 09/10/16 08:00 09/10/16 12:00 09/10/16 08:00 09/10/16 08:00 09/10/16 08:00 Intake and Output: 09/10/16 09/10/16 06:59 18:59 Intake Total 2250 910 Balance 2250 910 - Labs Labs: 09/10/16 07:50 09/10/16 07:50 Assessment and Plan - Assessment and Plan (Free Text) Assessment: Patient is seen and examined. Alert, awake, NAD. Denies sob or chest pains. Creatinine is down to 1.[address] Ivory, discharge plan for today. Advised to f/u in the office in 1 week.
--- NOTE | 2016-09-25 09:11 | DS ---
CHIEF COMPLAINT: Feeling fatigued and weak, recent weight loss of 10 pounds. HISTORY OF PRESENT ILLNESS: The patient is a 71-year-old lady with history of diabetes mellitus, sent to the Emergency Room by the primary care physician for further evaluation of renal failure. The patient reports that she was seen by her PMD after complaining that she has been feeling weak, tired, unwell and recently loss of weight. The patient denies fevers, chills. We admitted the patient. Called nephrology consult with Dr. Tariq Briggs. After giving hydration, patient started feeling better. Prescription of medications given. Follow up as outpatient with primary care physician and post acute care nurse practitioner. PAST MEDICAL HISTORY: Anxiety, depression, diabetes mellitus, hypertension, and cholecystectomy. SOCIAL HISTORY: No smoking, no drugs, no ethanol. FAMILY HISTORY: Father and mother noncontributory. REVIEW OF SYSTEMS: The patient was seen and examined on the bedside. Looks comfortable. No nausea, vomiting, or diarrhea. No hematuria or hematochezia. No chest pain, no palpitation. PHYSICAL EXAMINATION: VITAL SIGNS: Temperature 97.9, pulse 70, blood pressure 139/75, respiratory rate 20. HEENT: Head normocephalic, atraumatic. Eyes, PERRLA. Extraocular muscles intact. Conjunctivae pink. Eyelids unremarkable. Nose patent. Mucous membranes moist. NECK: Supple. No carotid bruit, JVD or thyromegaly. CHEST: Bilaterally symmetrical. HEART: S1, S2 positive. LUNGS: Clear to auscultation. ABDOMEN: Soft. Bowel sounds positive. No organomegaly. EXTREMITIES: No edema, no cyanosis. NEUROLOGIC: The patient looks comfortable. Oriented x 3. Cranial nerves II- XII are grossly intact. LABORATORY DATA: White blood cells 6.3, hemoglobin 9.9, hematocrit 30.5, platelets 175. Sodium 141, potassium 3.5, BUN noted , creatinine 1.5, glucose 206, calcium 7.5. ASSESSMENT AND PLAN: The patient is a 71-year-old female with anemia, hypokalemia, hyperglycemia, hypocalcemia, uncontrolled diabetes mellitus, glucosuria, drug screening negative, was admitted with acute renal failure, acute on chronic, already resolving by the time of presentation, unclear etiology, either acute tubular necrosis in the setting of acute illness or acute interstitial nephritis possibly from sitagliptin discontinued since 5 days. Currently euvolemic on exam with stable electrolyte status. Urinalysis is negative for albuminuria, but with more than 2 grams protein by spot protein/ creatinine. Will repeat proteinuria testing once serum creatinine is stable. Hypertension, controlled with metoprolol. Holding enalapril for now because of kidney function is not good. Diabetes; A1c is mildly elevated. Will resume metformin as kidney function will get better. Anemia is improving. Seen by Dr. Tariq Briggs. Discharged home on 09/10/2016. Prescription written by Amanda Milton, nurse practitioner. The patient was awake, alert. Denies shortness of breath or chest pain. Creatinine down to 1.5 today. Discussion done with Amanda. Advised to follow up in my office in 1 week and her post acute care nurse practitioner also. Sophie Ivory MD cc: [id number] TT: 09/25/2016 09:11:44 suellen OLIVERA
== END 2016-09-10 15:30 | disposition home or self-care (01) | DRG 683 ==
LOC: C.ER 16:08 → C.9E 17:17 → C.3T 18:03
PROVIDERS: ADMIT Internal Medicine; ATTEND Internal Medicine
DX: N17.0 Acute kidney failure with tubular necrosis (principal); E87.0 Hyperosmolality and hypernatremia; E11.65 Type 2 diabetes mellitus with hyperglycemia; E11.22 Type 2 diabetes mellitus with diabetic chronic kidney disease; E86.9 Volume depletion, unspecified; D64.9 Anemia, unspecified; F32.9 Major depressive disorder, single episode, unspecified; F41.9 Anxiety disorder, unspecified; Z79.4 Long term (current) use of insulin; Z90.49 Acquired absence of other specified parts of digestive tract; E87.6 Hypokalemia; I12.9 Hypertensive chronic kidney disease with stage 1 through stage 4 chronic kidney disease, or unspecified chronic kidney disease; N18.9 Chronic kidney disease, unspecified

== ENCOUNTER 2016-09-29 14:03 | Emergency (ER) | payer MEDICARE, OTHER ==
[2016-09-29 14:03] VITALS: BMI 24.0
[2016-09-29 14:59] LABS: BASO % 0.3 % (0.0-2.0); EOS % 0.4 % (0.0-4.0); HEMATOCRIT 32.8 % (34.0-47.0); LYMPH # 1.3 K/uL (1.0-4.3); MEAN CELL VOLUME 80.1 fL (81.0-99.0); MEAN CORPUSCULAR HEMOGLOBIN 25.3 pg (27.0-31.0); MEAN CORPUSCULAR HGB CONC 31.5 g/dL (33.0-37.0); MEAN PLATELET VOLUME 8.9 fL (7.2-11.7); MONO # 0.3 K/uL (0.0-0.8); MONO % 3.8 % (0.0-10.0); RED CELL DISTRIBUTION WIDTH 19.3 % (11.5-14.5); WHITE BLOOD COUNT 7.3 K/uL (4.8-10.8)
[2016-09-29 15:07] LABS: POTASSIUM 4.4 mmol/L (3.6-5.2)
[2016-09-29 15:09] LABS: BILIRUBIN,TOTAL 0.1 mg/dL (0.2-1.3)
[2016-09-29 15:10] LABS: ALB/GLOB RATIO 1.3 (1.0-2.1); CALCIUM 8.7 mg/dl (8.6-10.4); TOTAL PROTEIN 7.5 g/dL (6.3-8.3)
[2016-09-29 15:33] LABS: RBC URINE < 1 /hpf (0-3); URINE BILIRUBIN NEGATIVE (NEGATIVE); URINE BLOOD NEGATIVE (NEGATIVE); URINE COLOR Yellow (YELLOW); URINE GLUCOSE (UA) NORMAL (Normal); URINE KETONE NEGATIVE (NEGATIVE); URINE LEUKOCYTE ESTERASE NEG Leu/uL (Negative); URINE PROTEIN NEGATIVE (NEGATIVE); URINE UROBILINOGEN NORMAL mg/dL (0.2-1.0); WBC URINE 1 /hpf (0-5)
--- NOTE | 2016-09-29 15:38 | C.PDOC ---
History Of Present Illness Patient is a 71 year old female who presents to the ER with a complaint of anuria and constipation since this morning. Patient recently admitted 3 weeks ago for acute renal failure. Patient's PMD is Elanaraya Marcelino. Denies fever, vomiting, abdominal pain, or bladder distention. Time Seen by Provider: 09/29/16 14:30 Chief Complaint (Nursing): GI Problem History Per: Patient History/Exam Limitations: no limitations Onset/Duration Of Symptoms: Days (3 weeks) Current Symptoms Are (Timing): Still Present Associated Symptoms: Constipation, Urinary Symptoms (Anuria). denies: Fever, Vomiting, Other (Bladder distention) Past Medical History Reviewed: Historical Data, Nursing Documentation, Vital Signs Vital Signs: Last Vital Signs Temp 98.2 F 09/29/16 16:23 Pulse 82 09/29/16 16:23 Resp 18 09/29/16 16:23 BP 148/78 09/29/16 16:23 Pulse Ox 100 09/29/16 20:31 - Medical History PMH: Anxiety, Depression, Diabetes, HTN Surgical History: Cholecystectomy - [facility] Procedures COLONOSCOPY (09/28/13) Family History: States: Unknown Family Hx - Social History Hx Tobacco Use: No Hx Alcohol Use: No Hx Substance Use: No - Immunization History Hx Tetanus Toxoid Vaccination: No Hx Influenza Vaccination: Yes Hx Pneumococcal Vaccination: No Review Of Systems Constitutional: Negative for: Fever Gastrointestinal: Negative for: Vomiting, Abdominal Pain, Other (Bladder distention) Genitourinary: Positive for: Other (Anuria. No bladder distention.) Physical Exam - Physical Exam Additional Physical Exam Comments: Constitutional: No acute distress. Head: Normocephalic. Atraumatic. Eyes: PERRL. ENT: Moist mucous membranes. Neck: Supple. Cardiovascular: Regular rate. Radial pulse 2+ bilaterally. Chest: No tenderness. Respiratory: Clear to auscultation bilaterally. GI: Soft. Nontender. Nondistended. Back: No CVA tenderness. Musculoskeletal: No tenderness or swelling of extremities. Skin: No rash. Neurologic: Alert, no focal deficit. ED Course And Treatment - Laboratory Results Result Diagrams: 09/29/16 14:56 09/29/16 14:56 O2 Sat by Pulse Oximetry: 100 (Room air) Pulse Ox Interpretation: Normal Medical Decision Making Medical Decision Making: EKG, CXR, and urinalysis ordered. Navarro catheter inserted. After navarro was placed, 350cc obtained. Patient's feeling of constipation was largely relieved at this point. Labs unremarkable including no change in baseline LFTs and creatinine same as day of discharge. I offered for the patient to be admitted and also for navarro placement with leg bag but she and family declined. Decided to attempt laxatives and continued normal urination. They stated they would return to the ER immediately for inability to urinate. They have an appointment this coming Saturday. Disposition - Disposition Referrals: Diego Marcelino MD [Staff Provider] - Disposition: HOME/ ROUTINE Disposition Time: 16:32 Condition: STABLE Prescriptions: Polyethylene Glycol 3350 [Miralax] 17 gm PO DAILY #238 gm Instructions: Constipation (ED), Acute Urinary Retention in Women (ED) - Clinical Impression Clinical Impression: Constipation, Urinary retention - Scribe Statement The provider has reviewed the documentation as recorded by the Scribe Gordy Light All medical record entries made by the Scribe were at my direction and personally dictated by me. I have reviewed the chart and agree that the record accurately reflects my personal performance of the history, physical exam, medical decision making, and the department course for this patient. I have also personally directed, reviewed, and agree with the discharge instructions and disposition.
[2016-09-29 16:23] VITALS: BP 148/78; PULSE 82; RESP 18; TEMP 98.2
[2016-09-29 16:35] VITALS: O2SAT 100
--- NOTE | 2016-09-29 17:38 | RAD ---
HISTORY: urinary retention COMPARISON: No prior. FINDINGS: LUNGS: No active pulmonary disease. PLEURA: No significant pleural effusion identified, no pneumothorax apparent. CARDIOVASCULAR: Normal. OSSEOUS STRUCTURES: Minor DJD both shoulder girdles VISUALIZED UPPER ABDOMEN: Normal. OTHER FINDINGS: None. IMPRESSION: No active disease.
== END 2016-09-29 17:15 | disposition home or self-care (01) ==
LOC: C.ER 14:03
DX: K59.00 Constipation, unspecified (principal); R33.9 Retention of urine, unspecified

== ENCOUNTER 2016-10-24 12:02 | Inpatient (IN) | payer MEDICARE, OTHER ==
[2016-10-24 12:02] VITALS: BMI 24.0
[2016-10-24] MEDS ORDERED: Imipenem/Cilastatin 500 MG in Dextrose 5% In Water 100 ML IVPB STA (12:31)
--- NOTE | 2016-10-24 12:35 | C.PDOC ---
History Of Present Illness 71 y/o female, past medical history including hypertension and diabetes, sent to emergency department by PMD for persistent UTI. Patient with klebsiella in urine, sensitive only to imipenem. Currently patient c/o of dysuria. Denies fevers, chills, abdominal pain, or other associated symptoms. Time Seen by Provider: 10/24/16 12:14 Chief Complaint (Nursing): Female Genitourinary History Per: Patient History/Exam Limitations: no limitations Onset/Duration Of Symptoms: Persistent Current Symptoms Are (Timing): Still Present Pain Scale Rating Of: 0 Associated Symptoms: Urinary Symptoms (dysuria). denies: Fever, Chills, Diarrhea Recent travel outside of the [place]: No Past Medical History Reviewed: Historical Data, Nursing Documentation, Vital Signs Vital Signs: Last Vital Signs Temp 97.6 F 10/24/16 12:16 Pulse 87 10/24/16 12:16 Resp 16 10/24/16 12:16 BP 120/65 10/24/16 12:16 Pulse Ox 97 10/24/16 14:01 - Medical History PMH: Anxiety, Depression, Diabetes, HTN, Chronic Kidney Disease Surgical History: Cholecystectomy - [facility] Procedures COLONOSCOPY (09/28/13) Family History: States: Unknown Family Hx - Social History Hx Tobacco Use: No Hx Alcohol Use: No Hx Substance Use: No - Immunization History Hx Tetanus Toxoid Vaccination: No Hx Influenza Vaccination: Yes Hx Pneumococcal Vaccination: No Review Of Systems Except As Marked, All Systems Reviewed And Found Negative. Constitutional: Negative for: Fever, Chills Respiratory: Negative for: Cough, Shortness of Breath Gastrointestinal: Negative for: Nausea, Vomiting, Abdominal Pain Genitourinary: Positive for: Dysuria. Negative for: Frequency, Hematuria, Pelvic Pain Physical Exam - Physical Exam Appears: Non-toxic, No Acute Distress Skin: Normal Color, Warm, Dry Head: Atraumatic, Normacephalic Chest: Symmetrical Cardiovascular: Rhythm Regular Respiratory: Normal Breath Sounds, No Rales, No Rhonchi, No Wheezing Gastrointestinal/Abdominal: Soft, No Tenderness, No Guarding, No Rebound Back: Normal Inspection Extremity: Normal ROM, Capillary Refill (< 2 sec. ) Neurological/Psych: Oriented x3, Normal Speech, Normal Cognition ED Course And Treatment - Laboratory Results Result Diagrams: 10/24/16 13:17 10/24/16 13:17 O2 Sat by Pulse Oximetry: 97 (RA) Pulse Ox Interpretation: Normal Medical Decision Making Medical Decision Making: Plan: * imipenum IV * labs * reassess Prior Visits: Notes and results from previous visits were reviewed Progress Notes: pt with failure of outpt treatment, only sensitive to imipenem. Disposition - Disposition Disposition: HOSPITALIZED Disposition Time: 14:00 Condition: STABLE - Clinical Impression Clinical Impression: Urinary tract infection, Elevated lipase, Renal insufficiency - Scribe Statement The provider has reviewed the documentation as recorded by the Warrenibjaun Dick All medical record entries made by the Warrenibe were at my direction and personally dictated by me. I have reviewed the chart and agree that the record accurately reflects my personal performance of the history, physical exam, medical decision making, and the department course for this patient. I have also personally directed, reviewed, and agree with the discharge instructions and disposition. Decision To Admit - Pt Status Changed To: Hospital Disposition Of: Inpatient - Admit Certification Admit to Inpatient:: After my assessment, the patient will require hospitalization for at least two midnights. This is because of the severity of symptoms shown, intensity of services needed, and/or the medical risk in this patient being treated as an outpatient. - InPatient: Physician Admission Certification: I certify that this patient requires 2 or more midnights of care for the following reason:: pt with uti failure of outpt, resistent to po, needs iv imipemem - . Bed Request Type: Regular Patient Diagnosis: Urinary tract infection, Elevated lipase, Renal insufficiency
[2016-10-24 13:29] LABS: BASO % 0.4 % (0.0-2.0); EOS # 0.1 K/uL (0.0-0.7); EOS % 1.7 % (0.0-4.0); HEMATOCRIT 30.3 % (34.0-47.0); LYMPH # 3.3 K/uL (1.0-4.3); LYMPH % 49.5 % (20.0-40.0); MEAN CELL VOLUME 82.9 fL (81.0-99.0); MEAN CORPUSCULAR HEMOGLOBIN 26.9 pg (27.0-31.0); MEAN CORPUSCULAR HGB CONC 32.4 g/dL (33.0-37.0); MEAN PLATELET VOLUME 9.1 fL (7.2-11.7); MONO # 0.4 K/uL (0.0-0.8); MONO % 6.4 % (0.0-10.0); RED CELL DISTRIBUTION WIDTH 17.7 % (11.5-14.5); WHITE BLOOD COUNT 6.6 K/uL (4.8-10.8)
[2016-10-24 13:31] LABS: POTASSIUM 4.9 mmol/L (3.6-5.2)
[2016-10-24 13:33] LABS: ALB/GLOB RATIO 1.4 (1.0-2.1); BILIRUBIN,TOTAL 0.4 mg/dL (0.2-1.3); TOTAL PROTEIN 7.4 g/dL (6.3-8.3)
[2016-10-24 13:34] LABS: CALCIUM 8.6 mg/dl (8.6-10.4)
[2016-10-24 13:47] LABS: RBC URINE 1 /hpf (0-3); URINE BACTERIA FEW (<OCC); URINE BILIRUBIN NEGATIVE (NEGATIVE); URINE BLOOD NEGATIVE (NEGATIVE); URINE COLOR Yellow (YELLOW); URINE GLUCOSE (UA) NORMAL (Normal); URINE KETONE NEGATIVE (NEGATIVE); URINE LEUKOCYTE ESTERASE 3+ Leu/uL (Negative); URINE PROTEIN NEGATIVE (NEGATIVE); URINE UROBILINOGEN NORMAL mg/dL (0.2-1.0); WBC URINE 211 /hpf (0-5)
[2016-10-25] MEDS ORDERED: Imipenem/Cilastatin 250 MG in Sodium Chloride 100 ML IVPB SCH (01:00)
[2016-10-25] MEDS ORDERED: Pantoprazole 40 mg EC Tab PO ONE (10:54)
[2016-10-25] MEDS ORDERED: (Novolog) Insulin Aspart, Recombinant 100 u/ml 10 ml vial ONE ×2 (10:57→11:08)
[2016-10-25] MEDS ORDERED: Imipenem/Cilastatin 500 MG in Dextrose 5% In Water 100 ML IVPB SCH (19:15)
[2016-10-25] MEDS: (Lantus) Insulin Glargine, Recombinant SC SCH (21:57)
[2016-10-25] MEDS: (Novolog) Insulin Aspart, Recombinant 100 u/ml 10 ml vial SC SCH (21:57)
[2016-10-25] MEDS ORDERED: (Lantus) Insulin Glargine, Recombinant SC SCH (22:00)
[2016-10-26] MEDS: (Novolog) Insulin Aspart, Recombinant 100 u/ml 10 ml vial SC SCH ×4 (08:01→22:53)
--- NOTE | 2016-10-26 08:18 | HP ---
HISTORY OF PRESENT ILLNESS: This is a 71-year-old female with history of multiple medical problems including chronic kidney disease, longstanding type 2 diabetes mellitus, presented to Emergency Room with dysuria. The patient had a urine culture done by the urologist a week earlier that showed Klebsiella which is resistant to Bactrim, for which patient was taking at home. The patient's bacteria was currently sensitive to Primaxin. The patient was started on Primaxin in the Emergency Room and admitted for further management. The patient has been on bactrim which she failed during the last 2 week . REVIEW OF SYSTEMS: Other review of systems is negative. ALLERGIES: No known allergy. HOME MEDICATIONS: Glimepiride 2 mg twice a day, Lantus 28 units daily, Protonix 40 mg daily, enalapril 20 mg daily, Urecholine 25 mg 3 times a day, Bactrim double strength twice/ day. SOCIAL HISTORY: No history of smoking, ETOH or substance abuse. FAMILY HISTORY: Noncontributory. PAST MEDICAL HISTORY: Type 2 diabetes mellitus and hypertension, neurogenic bladder with urinary retention that responded to Urecholine. PHYSICAL EXAMINATION: GENERAL: The patient is in bed, comfortable, not in any cardiopulmonary distress. VITAL SIGNS: Blood pressure 119/66, temperature 97.3, respiratory rate 16. HEENT: Pupils equal, reactive to light. Normal-appearing mucosa of the conjunctivae, oropharyngeal and nasal membrane mucosa. NECK: Supple, no JVD, no carotid bruit, no lymph node, no thyromegaly. CHEST AND LUNGS: Bilateral symmetrical expansion, good air exchange, no rales, no rhonchi. CARDIOVASCULAR: PMI not localized. S1, S2. No additional sounds. ABDOMEN: Normoactive bowel sounds, no tenderness, no organomegaly, no masses. EXTREMITIES: No cyanosis, no clubbing, no edema. CENTRAL NERVOUS SYSTEM: Alert, awake, oriented x 2. No neurological deficits could be appreciated. ASSESSMENT: 1. Symptomatic urinary tract infection, failed outpatient treatment and is sensitive to only Primaxin. 2. Hypertension. 3. Type 2 diabetes mellitus. 4. Chronic kidney disease stage III. PLAN: Continue current IV antibiotics, Primaxin 500 mg q. 12 hours. Resume the patient's home medications. [facility] Jia Marcelino MD cc: [id number] TT: 10/26/2016 00:59:01 suellen OLIVERA
[2016-10-26] MEDS: Pantoprazole 40 mg EC Tab PO SCH (09:14)
[2016-10-26] MEDS: Sodium Chloride 0.9% 1,000 ML IV SCH (09:15)
[2016-10-26] MEDS ORDERED: Pantoprazole 40 mg EC Tab PO SCH (10:00)
[2016-10-26 12:31] LABS: BASO % 0.6 % (0.0-2.0); EOS # 0.2 K/uL (0.0-0.7); EOS % 2.5 % (0.0-4.0); HEMATOCRIT 29.6 % (34.0-47.0); LYMPH # 2.6 K/uL (1.0-4.3); LYMPH % 40.9 % (20.0-40.0); MEAN CELL VOLUME 83.3 fL (81.0-99.0); MEAN CORPUSCULAR HEMOGLOBIN 27.1 pg (27.0-31.0); MEAN CORPUSCULAR HGB CONC 32.5 g/dL (33.0-37.0); MEAN PLATELET VOLUME 8.9 fL (7.2-11.7); MONO # 0.5 K/uL (0.0-0.8); MONO % 7.5 % (0.0-10.0); RED CELL DISTRIBUTION WIDTH 17.6 % (11.5-14.5); WHITE BLOOD COUNT 6.3 K/uL (4.8-10.8)
[2016-10-26 12:50] LABS: POTASSIUM 4.1 mmol/L (3.6-5.2)
[2016-10-26 12:53] LABS: CALCIUM 8.3 mg/dl (8.6-10.4)
[2016-10-26] MEDS: (Lantus) Insulin Glargine, Recombinant SC SCH (21:22)
[2016-10-27] MEDS: Sodium Chloride 0.9% 1,000 ML IV SCH ×2 (02:28→09:23)
[2016-10-27 07:33] LABS: BASO % 0.5 % (0.0-2.0); EOS # 0.2 K/uL (0.0-0.7); EOS % 2.9 % (0.0-4.0); HEMATOCRIT 27.8 % (34.0-47.0); LYMPH # 3.1 K/uL (1.0-4.3); MEAN CELL VOLUME 82.7 fL (81.0-99.0); MEAN CORPUSCULAR HEMOGLOBIN 27.6 pg (27.0-31.0); MEAN CORPUSCULAR HGB CONC 33.4 g/dL (33.0-37.0); MEAN PLATELET VOLUME 8.8 fL (7.2-11.7); MONO # 0.4 K/uL (0.0-0.8); MONO % 7.4 % (0.0-10.0); NRBC % 0.1 % (0.0-2.0); RED CELL DISTRIBUTION WIDTH 17.6 % (11.5-14.5); WHITE BLOOD COUNT 5.4 K/uL (4.8-10.8)
[2016-10-27 07:54] LABS: CHLORIDE 112 mmol/L (98-107); POTASSIUM 4.1 mmol/L (3.6-5.2); SODIUM 141 mmol/L (132-148)
[2016-10-27 07:57] LABS: BLOOD UREA NITROGEN 17 mg/dL (7-17); CARBON DIOXIDE 21 mmol/L (22-30); GFR AFRICAN-AMERICAN > 60; GLUCOSE,RANDOM 139 mg/dL (65-105)
[2016-10-27] MEDS: (Novolog) Insulin Aspart, Recombinant 100 u/ml 10 ml vial SC SCH ×4 (07:57→22:09)
[2016-10-27] MEDS: Pantoprazole 40 mg EC Tab PO SCH (09:24)
[2016-10-27] MEDS ORDERED: Pneumococcal 23-Valent Vaccine IM ONE (10:00)
--- NOTE | 2016-10-27 11:53 | PN ---
DATE: 10/26/2016 The patient was seen on 10/26/16. She was not in any cardiopulmonary distress and the patient was on IV antibiotics, Primaxin. PHYSICAL EXAMINATION: VITAL SIGNS: Blood pressure was 119/67, temperature 97.7, respiratory rate 20, and pulse 71. HEENT: Pupils equal, reactive to light. Normal-appearing mucosa of the conjunctivae, oropharyngeal and nasal membrane mucosa. NECK: Supple, no JVD, no carotid bruit, no lymph node, no thyromegaly. CHEST AND LUNGS: Bilateral symmetrical expansion, good air exchange, no rales, no rhonchi. CARDIOVASCULAR: PMI not localized. S1, S2. No additional sounds. ABDOMEN: Normoactive bowel sounds, no tenderness, no organomegaly, no masses. EXTREMITIES: No cyanosis, no clubbing, no edema. CENTRAL NERVOUS SYSTEM: Alert, awake, oriented x 2. No neurological deficits could be appreciated. ASSESSMENT: 1. Urinary tract infection that was not responding to outpatient antibiotics and it is probably sens itive to IV antibiotics including Primaxin which patient is currently tolerating. 2. Chronic kidney disease stage II. 3. Acute complicated type 2 diabetes mellitus with hyperglycemia. PLAN: Continue current medications and management, do Accu-Cheks and insulin coverage. Diego Marcelino MD cc: [id number] TT: 10/27/2016 11:52:49 Confirmation # [id number] Dictation # [id number] tn
[2016-10-27] MEDS: (Lantus) Insulin Glargine, Recombinant SC SCH (21:17)
[2016-10-28] MEDS: (Novolog) Insulin Aspart, Recombinant 100 u/ml 10 ml vial SC SCH ×4 (08:41→22:54)
[2016-10-28] MEDS: Pantoprazole 40 mg EC Tab PO SCH (09:21)
[2016-10-28 16:38] VITALS: RESP 20
[2016-10-28] MEDS: (Lantus) Insulin Glargine, Recombinant SC SCH (22:58)
--- NOTE | 2016-10-29 07:16 | PN ---
DATE: 10/27/2016 The patient is seen today, 10/27/2016. She is feeling overall better and she is on IV Primaxin, treating klebsiella urinary tract infection, which is multidrug resistant. PHYSICAL EXAMINATION: VITAL SIGNS: Blood pressure is 123/71, temperature 98.6, respiratory rate 20, and pulse 87. HEENT: Pupils equal, reactive to light. Normal-appearing mucosa of the conjunctivae, oropharyngeal and nasal membrane mucosa. NECK: Supple, no JVD, no carotid bruit, no lymph node, no thyromegaly. CHEST AND LUNGS: Bilateral symmetrical expansion, good air exchange, no rales, no rhonchi. CARDIOVASCULAR: PMI not localized. S1, S2. No additional sounds. ABDOMEN: Normoactive bowel sounds, no tenderness, no organomegaly, no masses. EXTREMITIES: No cyanosis, no clubbing, no edema. CENTRAL NERVOUS SYSTEM: Alert, awake, oriented x 3 , no neurological deficits. ASSESSMENT: Klebsiella urinary tract infection with resistant to many of the p.o. antibiotics. The patient is sensitive to Primaxin, which we will continue for a total of 7 days. FINAL DIAGNOSES: 1. Klebsiella pneumoniae urinary tract infection. 2. Resolving chronic kidney disease. 3. Type 2 diabetes mellitus. 4. Hypertension. PLAN: Continue current IV antibiotics and added Januvia 50 mg daily. Diego Marcelino MD cc: [id number] TT: 10/28/2016 08:37:25 Confirmation # [id number] Dictation # [id number] MTDD
[2016-10-29] MEDS: (Novolog) Insulin Aspart, Recombinant 100 u/ml 10 ml vial SC SCH ×3 (08:29→17:55)
[2016-10-29] MEDS: Pantoprazole 40 mg EC Tab PO SCH (09:05)
[2016-10-29 11:46] LABS: BASO % 0.4 % (0.0-2.0); EOS # 0.1 K/uL (0.0-0.7); EOS % 1.4 % (0.0-4.0); LYMPH # 2.4 K/uL (1.0-4.3); LYMPH % 42.4 % (20.0-40.0); MEAN CELL VOLUME 83.4 fL (81.0-99.0); MEAN CORPUSCULAR HEMOGLOBIN 27.4 pg (27.0-31.0); MEAN CORPUSCULAR HGB CONC 32.8 g/dL (33.0-37.0); MEAN PLATELET VOLUME 8.8 fL (7.2-11.7); MONO # 0.4 K/uL (0.0-0.8); MONO % 6.6 % (0.0-10.0); WHITE BLOOD COUNT 5.8 K/uL (4.8-10.8)
[2016-10-29 11:58] LABS: CHLORIDE 105 mmol/L (98-107)
[2016-10-29 11:59] LABS: POTASSIUM 4.3 mmol/L (3.6-5.2); SODIUM 137 mmol/L (132-148)
[2016-10-29 12:01] LABS: ALB/GLOB RATIO 1.2 (1.0-2.1); ALKALINE PHOSPHATASE 56 U/L (38-126); AST/SGOT 34 U/L (14-36); BILIRUBIN,TOTAL 0.4 mg/dL (0.2-1.3); BLOOD UREA NITROGEN 19 mg/dL (7-17); CARBON DIOXIDE 24 mmol/L (22-30); GFR AFRICAN-AMERICAN > 60; GLUCOSE,RANDOM 220 mg/dL (65-105); TOTAL PROTEIN 6.1 g/dL (6.3-8.3)
[2016-10-29 12:02] LABS: ALT/SGPT 33 U/L (9-52); CALCIUM 7.9 mg/dl (8.6-10.4)
[2016-10-29 16:31] VITALS: BP 151/79; PULSE 86; TEMP 97.6; O2SAT 90
--- NOTE | 2016-10-29 18:12 | CP.PCM.PN ---
Subjective - Date & Time of Evaluation Date of Evaluation: 10/29/16 Time of Evaluation: 11:00 - Subjective Subjective: Awake, alert, NAD. Objective - Vital Signs/Intake and Output Vital Signs (last 24 hours): Temp Pulse Resp BP Pulse Ox 97.6 F 86 20 151/79 H 90 L 10/29/16 15:00 10/29/16 15:00 10/29/16 15:00 10/29/16 15:00 10/29/16 15:00 Intake and Output: 10/29/16 10/29/16 06:59 18:59 Intake Total 1120 1540 Balance 1120 1540 - Medications Medications: Current Medications Acetaminophen (Tylenol 325mg Tab) 650 mg PO Q6 PRN PRN Reason: Pain, moderate (4-7) Last Admin: 10/28/16 08:48 Dose: 650 mg Bethanechol Chloride (Urecholine) 25 mg PO TID [facility] Last Admin: 10/29/16 17:45 Dose: 25 mg Enalapril Maleate (Vasotec) 20 mg PO DAILY [facility] Last Admin: 10/29/16 09:12 Dose: 20 mg Glimepiride (Amaryl) 2 mg PO 0800 [facility] Last Admin: 10/29/16 09:01 Dose: 2 mg Imipenem/Cilastatin Sodium 500 (mg/ Sodium Chloride) 100 mls @ 100 mls/hr IVPB Q12H [facility] Last Admin: 10/29/16 09:11 Dose: 100 mls/hr Insulin Aspart (Novolog) 0 unit SC ACHS [facility] PRN Reason: Protocol Last Admin: 10/29/16 17:55 Dose: 2 unit Insulin Glargine (Lantus) 25 unit SC HS [facility] Last Admin: 10/28/16 22:58 Dose: Not Given Pantoprazole Sodium (Protonix Ec Tab) 40 mg PO DAILY [facility] Last Admin: 10/29/16 09:05 Dose: 40 mg Sitagliptin Phosphate (Januvia) 50 mg PO DAILY [facility] Last Admin: 10/29/16 09:03 Dose: Not Given - Labs Labs: 10/29/16 11:38 10/29/16 11:38 Assessment and Plan - Assessment and Plan (Free Text) Assessment: Patient is seen and examined. No sob or chest pains. ambulatory. D/W DR Marcelino. [place] [facility] 4 more days of iv antibiotic for resistant UTI.
--- NOTE | 2016-10-30 10:35 | DS ---
REASON FOR ADMISSION: This is a 71-year-old female with history of multiple medical problem s who was admitted for ESBL positive Klebsiella urinary tract infection that did not respond to oral antibiotics. COURSE OF HOSPITALIZATION: The patient was admitted to medical floor after evaluation in Emergency R oom. The patient was started on Primaxin 500 mg q. 12 hours as directed by the ID and sensitivity of the organism. The patient's urinary symptoms responded well and patient was discharged to subacute rehabilitation to complete a total of 7 days of IV antibiotics. The patient was discharged in a stab le condition to be followed in subacute rehabilitation by Dr. Marcelino. FINAL DIAGNOSES: 1. Extended-spectrum beta-lactamase positive Klebsiella pneumoniae urinary tract infection, did not respond to oral antibiotics 2. Type 2 diabetes mellitus. 3. Chronic kidney disease. 4. Hypertension. [facility] Jia Marcelino MD cc: [id number] TT: 10/30/2016 10:34:49 en
== END 2016-10-29 20:35 | DRG 690 ==
LOC: C.ER 12:02 → C.9E 13:57 → C.6T 16:10
PROVIDERS: ADMIT Internal Medicine; ATTEND Internal Medicine
DX: N39.0 Urinary tract infection, site not specified (principal); E11.22 Type 2 diabetes mellitus with diabetic chronic kidney disease; E11.65 Type 2 diabetes mellitus with hyperglycemia; N18.3 Chronic kidney disease, stage 3 (moderate); B96.1 Klebsiella pneumoniae [K. pneumoniae] as the cause of diseases classified elsewhere; F32.9 Major depressive disorder, single episode, unspecified; F41.9 Anxiety disorder, unspecified; I12.9 Hypertensive chronic kidney disease with stage 1 through stage 4 chronic kidney disease, or unspecified chronic kidney disease; Z16.29 Resistance to other single specified antibiotic; Z79.4 Long term (current) use of insulin; N31.9 Neuromuscular dysfunction of bladder, unspecified